=== PATIENT | female | born 1955 | race African-American/Black ===

== ENCOUNTER 2019-09-07 10:41 | Inpatient (IN) | payer MEDICARE, MEDICAID ==
[~2019-09-07] VITALS: Ht 162.6 cm; Wt 117.0 kg
[2019-09-07] MEDS ORDERED: IPRATROPIUM BROMIDE (0.02%) 0.5MG/2.5ML NEB HHN STA (11:07)
[2019-09-07] MEDS ORDERED: ALBUTEROL (0.083%) 2.5MG/3ML NEB HHN STA (11:07)
[2019-09-07] MEDS ORDERED: METHYLPREDNISOLONE SOD SUCC 125 MG/2 ML VIAL IV STA (11:07)
[2019-09-07 11:25] LABS: EOSINOPHILS % 0.6 % (0.0-5.0); HEMOGLOBIN. 11.1 g/dL (12.0-16.0); LYMPHOCYTES % 19.4 % (20.0-50.0); MEAN CORPUSCULAR HEMOGLOBIN 29.9 pg (28.0-32.0); MEAN CORPUSCULAR VOLUME 91.7 fL (81.0-99.0); MEAN PLATELET VOLUME 8.2 fl (7.4-10.4); MONOCYTES % 6.9 % (2.0-8.0); NEUTROPHILS % 72.1 % (40.0-76.0); PLATELET 313 x1000/uL (130-400); RED BLOOD CELL COUNT 3.71 mill/uL (4.2-5.4); RED CELL DISTRIBUTION WIDTH 14.3 % (11.6-14.6)
[2019-09-07 11:32] LABS: CHLORIDE 105 mEq/L (98-107)
[2019-09-07] MEDS ORDERED: HYDRALAZINE 20MG/ML VIAL IV ONE (12:00)
[2019-09-07] MEDS ORDERED: FUROSEMIDE 40MG/4ML VIAL IVP ONE (12:15)
[2019-09-07] MEDS ORDERED: GUAIFENESIN 200MG/10ML SUGAR FREE UDC PO PRN (14:15)
[2019-09-07] MEDS ORDERED: ACETAMINOPHEN 325MG TABLET PO PRN (14:15)
[2019-09-07] MEDS ORDERED: MAGNESIUM/ALUMINUM HYDROXIDE/SIMETHICONE 30ML UDC PO PRN (14:15)
[2019-09-07] MEDS ORDERED: ENOXAPARIN 40MG/0.4ML SYR SUBCUT SCH (14:15)
[2019-09-07] MEDS ORDERED: DIPHENHYDRAMINE 50MG/ML VIAL IV PRN (14:15)
[2019-09-07] MEDS ORDERED: DOCUSATE SODIUM 100MG CAPSULE PO PRN (14:15)
[2019-09-07] MEDS ORDERED: IPRATROPIUM/ALBUTEROL 0.5-3(2.5)MG/3ML NEB HHN PRN (14:15)
[2019-09-07] MEDS ORDERED: ONDANSETRON HCL 4MG/2ML INJ IV PRN (14:15)
[2019-09-07] MEDS ORDERED: HYDRALAZINE 20MG/ML VIAL IV PRN (15:15)
[2019-09-07 16:00] VITALS: BP_SYST 161; BP_SYST 202; BP_DIAS 76; BP_DIAS 77
[2019-09-07 16:07] LABS: PHOSPHORUS 3.8 mg/dL (2.5-4.9)
[2019-09-07] MEDS ORDERED: AZITHROMYCIN 500 MG in DEXT 5% WATER 250 ML IV SCH (17:00)
[2019-09-07 17:23] VITALS: BP 161/77
[2019-09-07] MEDS: FUROSEMIDE 40MG/4ML VIAL IV SCH (17:30)
[2019-09-07] MEDS: ENOXAPARIN 40MG/0.4ML SYR SUBCUT SCH (17:30)
[2019-09-07] MEDS: PREDNISONE 20MG TABLET PO SCH (17:31)
[2019-09-07] MEDS: MULTIVITAMINS,THER W-MINERALS TABLET PO SCH (17:31)
[2019-09-07] MEDS: THIAMINE HCL 100MG TABLET PO SCH (17:31)
[2019-09-07] MEDS: FOLIC ACID 1MG TABLET PO SCH (17:31)
[2019-09-07] MEDS: AMLODIPINE 5MG TABLET PO SCH ×2 (17:32→22:34)
[2019-09-07] MEDS: LOSARTAN POTASSIUM 50 MG TABLET PO SCH ×2 (17:32→22:33)
[2019-09-07] MEDS ORDERED: INFLUENZA VIRUS VACCINE(AFLURIA) 0.5ML SYR IM ONE (19:15)
[2019-09-07] MEDS ORDERED: PNEUMOCOCCAL 23-VAL P-SAC VAC 0.5 ML IM ONE (19:15)
[2019-09-07 20:00] VITALS: BP 171/61
[2019-09-07] MEDS: IPRATROPIUM/ALBUTEROL 0.5-3(2.5)MG/3ML NEB HHN SCH (20:50)
[2019-09-07] MEDS: GUAIFENESIN 600MG ER TABLET PO SCH (21:14)
[2019-09-07] MEDS: HYDRALAZINE HCL 50MG TABLET PO SCH (21:14)
[2019-09-07] MEDS: CLONIDINE 0.1MG TABLET PO PRN (21:17)
[2019-09-07 22:29] VITALS: BP 156/57
[2019-09-08] VITALS (7 sets, daily range): BP systolic 143–182; BP diastolic 48–74
[2019-09-08 00:31] LABS: CLARITY URINE CLOUDY (CLEAR); COLOR URINE YELLOW (YELLOW); KETONES URINE NEGATIVE (NEGATIVE); LEUKOCYTE ESTERASE URINE TRACE (NEGATIVE); NITRITE URINE NEGATIVE (NEGATIVE); OCCULT BLOOD URINE NEGATIVE (NEGATIVE); PROTEIN URINE NEGATIVE (NEGATIVE)
[2019-09-08 00:46] LABS: *AMPHETAMINES SCREEN URINE NEGATIVE (NEGATIVE); *BARBITURATES SCREEN URINE NEGATIVE (NEGATIVE)
[2019-09-08 00:47] LABS: *BENZODIAZEPINES SCREEN URINE NEGATIVE (NEGATIVE); *COCAINE SCREEN URINE NEGATIVE (NEGATIVE); CANNABINOID URINE SCREEN NEGATIVE (NEGATIVE); METHADONE URINE SCREEN NEGATIVE (NEGATIVE); OPIATES URINE SCREEN NEGATIVE (NEGATIVE); PHENCYCLIDINE URINE SCREEN NEGATIVE (NEGATIVE)
[2019-09-08] MEDS: IPRATROPIUM/ALBUTEROL 0.5-3(2.5)MG/3ML NEB HHN SCH ×4 (01:31→20:33)
[2019-09-08] MEDS: FUROSEMIDE 40MG/4ML VIAL IV SCH ×2 (06:33→16:30)
[2019-09-08] MEDS: ENOXAPARIN 40MG/0.4ML SYR SUBCUT SCH ×2 (06:34→16:31)
[2019-09-08] MEDS: HYDRALAZINE HCL 50MG TABLET PO SCH (06:34)
[2019-09-08 07:01] LABS: BASOPHILS % 0.3 % (0.0-2.0); HEMATOCRIT. 33.8 % (36.0-48.0); LYMPHOCYTES % 7.7 % (20.0-50.0); MEAN CORPUSCULAR HEMOGLOBIN 29.8 pg (28.0-32.0); MEAN CORPUSCULAR VOLUME 91.2 fL (81.0-99.0); MEAN PLATELET VOLUME 8.7 fl (7.4-10.4); MONOCYTES % 5.5 % (2.0-8.0); NEUTROPHILS % 86.5 % (40.0-76.0); PLATELET 302 x1000/uL (130-400)
[2019-09-08 07:49] LABS: CHLORIDE 99 mEq/L (98-107)
[2019-09-08] MEDS ORDERED: DEXTROSE 50% WATER 50ML SYRINGE IV PRN (08:00)
[2019-09-08 08:09] LABS: LDL CHOLESTEROL 121 mg/dL (5-100)
[2019-09-08 08:11] LABS: HDL CHOLESTEROL 51 mg/dL (40-59)
[2019-09-08] MEDS: BUDESONIDE 0.5MG/2ML NEB HHN SCH ×2 (09:10→20:33)
[2019-09-08] MEDS: THIAMINE HCL 100MG TABLET PO SCH (09:19)
[2019-09-08] MEDS: AMLODIPINE 5MG TABLET PO SCH ×2 (09:19→21:18)
[2019-09-08] MEDS: CLONIDINE 0.1MG TABLET PO PRN ×2 (09:20→22:56)
[2019-09-08] MEDS: GUAIFENESIN 600MG ER TABLET PO SCH (09:20)
[2019-09-08] MEDS: MULTIVITAMINS,THER W-MINERALS TABLET PO SCH (09:20)
[2019-09-08] MEDS: FOLIC ACID 1MG TABLET PO SCH (09:20)
[2019-09-08] MEDS: LOSARTAN POTASSIUM 50 MG TABLET PO SCH ×2 (09:20→21:18)
[2019-09-08] MEDS: PREDNISONE 20MG TABLET PO SCH (09:21)
[2019-09-08] MEDS: CLONIDINE 0.1MG TABLET PO SCH ×2 (10:15→16:30)
[2019-09-08] MEDS ORDERED: MAGNESIUM 2 G PREMIX 50 ML IV NR (11:00)
[2019-09-08] MEDS: POTASSIUM CHLORIDE 20MEQ TABLET SR PO SCH ×2 (11:32→16:30)
[2019-09-08] MEDS: BLOOD SUGAR DIAGNOSTIC STRIP TEST SCH ×3 (12:10→21:12)
[2019-09-08] MEDS ORDERED: BENZONATATE 100MG CAPSULE PO PRN (13:30)
[2019-09-08] MEDS: HYDRALAZINE HCL 100MG TABLET PO SCH ×2 (14:22→21:19)
[2019-09-08] MEDS: INSULIN LISPRO 100 UNITS/ML SUBCUT SCH ×3 (14:24→21:46)
[2019-09-08] MEDS: MONTELUKAST SODIUM 10MG TABLET PO SCH (16:29)
[2019-09-08] MEDS: FLUTICASONE PROPIONATE 50MCG/SPRAY BOTTLE BOTHNSTRLS SCH ×2 (17:33→21:16)
[2019-09-08] MEDS: AZITHROMYCIN 500 MG in DEXT 5% WATER 250 ML IV SCH (18:58)
[2019-09-08] MEDS: FAMOTIDINE 20MG/2ML VIAL IV SCH (21:17)
[2019-09-08] MEDS: LORATADINE 10MG TABLET PO SCH (21:18)
[2019-09-09] VITALS: BP 135/57
[2019-09-09] MEDS: IPRATROPIUM/ALBUTEROL 0.5-3(2.5)MG/3ML NEB HHN SCH ×4 (01:10→20:37)
[2019-09-09 04:00] VITALS: BP 139/60
[2019-09-09] MEDS: INSULIN LISPRO 100 UNITS/ML SUBCUT SCH ×4 (06:21→21:00)
[2019-09-09] MEDS: BLOOD SUGAR DIAGNOSTIC STRIP TEST SCH ×4 (06:21→21:00)
[2019-09-09] MEDS: HYDRALAZINE HCL 100MG TABLET PO SCH ×3 (06:25→22:00)
[2019-09-09] MEDS: ENOXAPARIN 40MG/0.4ML SYR SUBCUT SCH ×2 (06:26→17:49)
[2019-09-09] MEDS: FUROSEMIDE 40MG/4ML VIAL IV SCH ×3 (06:27→23:14)
[2019-09-09 08:00] VITALS: BP 160/77
[2019-09-09 08:22] LABS: BASOPHILS % 0.8 % (0.0-2.0); EOSINOPHILS % 0.3 % (0.0-5.0); HEMATOCRIT. 36.6 % (36.0-48.0); HEMOGLOBIN. 11.7 g/dL (12.0-16.0); MEAN CORPUSCULAR HEMOGLOBIN 29.4 pg (28.0-32.0); MEAN PLATELET VOLUME 8.6 fl (7.4-10.4); MONOCYTES % 6.1 % (2.0-8.0); NEUTROPHILS % 73.8 % (40.0-76.0); PLATELET 326 x1000/uL (130-400); RED BLOOD CELL COUNT 3.98 mill/uL (4.2-5.4); RED CELL DISTRIBUTION WIDTH 14.4 % (11.6-14.6)
[2019-09-09] MEDS: BUDESONIDE 0.5MG/2ML NEB HHN SCH ×2 (08:32→20:37)
[2019-09-09 08:41] LABS: CHLORIDE 100 mEq/L (98-107)
[2019-09-09] MEDS: FLUTICASONE PROPIONATE 50MCG/SPRAY BOTTLE BOTHNSTRLS SCH ×2 (08:57→21:00)
[2019-09-09] MEDS: FAMOTIDINE 20MG/2ML VIAL IV SCH ×2 (08:58→23:02)
[2019-09-09] MEDS: PREDNISONE 20MG TABLET PO SCH (08:58)
[2019-09-09] MEDS: LOSARTAN POTASSIUM 50 MG TABLET PO SCH ×2 (08:59→21:00)
[2019-09-09] MEDS: AMLODIPINE 5MG TABLET PO SCH ×2 (08:59→23:00)
[2019-09-09] MEDS: FOLIC ACID 1MG TABLET PO SCH (08:59)
[2019-09-09] MEDS: CLONIDINE 0.1MG TABLET PO SCH ×2 (08:59→16:11)
[2019-09-09] MEDS: POTASSIUM CHLORIDE 20MEQ TABLET SR PO SCH ×2 (09:00→16:11)
[2019-09-09] MEDS: THIAMINE HCL 100MG TABLET PO SCH (09:00)
[2019-09-09] MEDS: MULTIVITAMINS,THER W-MINERALS TABLET PO SCH (09:01)
[2019-09-09 12:00] VITALS: BP 150/75
[2019-09-09 16:00] VITALS: BP 153/66
[2019-09-09] MEDS: MONTELUKAST SODIUM 10MG TABLET PO SCH (16:11)
[2019-09-09] MEDS: AZITHROMYCIN 500 MG in DEXT 5% WATER 250 ML IV SCH (17:37)
[2019-09-09 20:00] VITALS: BP 127/55
[2019-09-09] MEDS: LORATADINE 10MG TABLET PO SCH (22:59)
[2019-09-10] VITALS: BP 130/78
[2019-09-10] MEDS: IPRATROPIUM/ALBUTEROL 0.5-3(2.5)MG/3ML NEB HHN SCH ×2 (02:30→09:28)
[2019-09-10 04:00] VITALS: BP 156/86
[2019-09-10] MEDS: BLOOD SUGAR DIAGNOSTIC STRIP TEST SCH ×2 (06:00→11:30)
[2019-09-10] MEDS: INSULIN LISPRO 100 UNITS/ML SUBCUT SCH ×2 (06:02→11:30)
[2019-09-10] MEDS: ENOXAPARIN 40MG/0.4ML SYR SUBCUT SCH (06:03)
[2019-09-10] MEDS: FUROSEMIDE 40MG/4ML VIAL IV SCH (06:03)
[2019-09-10] MEDS: HYDRALAZINE HCL 100MG TABLET PO SCH ×2 (06:10→13:13)
[2019-09-10 07:19] LABS: CHLORIDE 98 mEq/L (98-107)
[2019-09-10 07:20] LABS: BASOPHILS % 0.4 % (0.0-2.0); EOSINOPHILS % 0.2 % (0.0-5.0); HEMATOCRIT. 35.9 % (36.0-48.0); HEMOGLOBIN. 11.6 g/dL (12.0-16.0); LYMPHOCYTES % 19.4 % (20.0-50.0); MEAN CORPUSCULAR HEMOGLOBIN 29.5 pg (28.0-32.0); MEAN CORPUSCULAR VOLUME 91.1 fL (81.0-99.0); MEAN PLATELET VOLUME 8.3 fl (7.4-10.4); MONOCYTES % 8.7 % (2.0-8.0); NEUTROPHILS % 71.3 % (40.0-76.0); PLATELET 366 x1000/uL (130-400); RED BLOOD CELL COUNT 3.94 mill/uL (4.2-5.4); RED CELL DISTRIBUTION WIDTH 14.4 % (11.6-14.6)
[2019-09-10 08:00] VITALS: BP 156/84
[2019-09-10] MEDS: FLUTICASONE PROPIONATE 50MCG/SPRAY BOTTLE BOTHNSTRLS SCH (08:31)
[2019-09-10] MEDS: AMLODIPINE 5MG TABLET PO SCH (08:32)
[2019-09-10] MEDS: THIAMINE HCL 100MG TABLET PO SCH (08:32)
[2019-09-10] MEDS: CLONIDINE 0.1MG TABLET PO SCH (08:33)
[2019-09-10] MEDS: POTASSIUM CHLORIDE 20MEQ TABLET SR PO SCH (08:33)
[2019-09-10] MEDS: LOSARTAN POTASSIUM 50 MG TABLET PO SCH (08:33)
[2019-09-10] MEDS: MULTIVITAMINS,THER W-MINERALS TABLET PO SCH (08:33)
[2019-09-10] MEDS: FAMOTIDINE 20MG/2ML VIAL IV SCH (08:34)
[2019-09-10] MEDS: FOLIC ACID 1MG TABLET PO SCH (08:34)
[2019-09-10] MEDS: PREDNISONE 20MG TABLET PO SCH (08:34)
[2019-09-10] MEDS ORDERED: FUROSEMIDE 40MG TABLET PO SCH (09:00)
[2019-09-10] MEDS: BUDESONIDE 0.5MG/2ML NEB HHN SCH (09:28)
[2019-09-10 12:00] VITALS: BP 175/93
[2019-09-10] MEDS: CLONIDINE 0.1MG TABLET PO PRN (12:06)
[2019-09-10] MEDS ORDERED: FUROSEMIDE 40MG/4ML VIAL IVP NR (13:00)
[2019-09-10] MEDS ORDERED: MONT10TA21 PO (13:16)
[2019-09-10] MEDS ORDERED: THIA100T72 PO (13:16)
[2019-09-10] MEDS ORDERED: AMLO5TAB88 PO (13:16)
[2019-09-10] MEDS ORDERED: HYDR100T26 PO (13:16)
[2019-09-10] MEDS ORDERED: P20 PO (13:16)
[2019-09-10] MEDS ORDERED: BENZ100C86 PO (13:16)
[2019-09-10] MEDS ORDERED: AZIT500T5 MT (13:16)
[2019-09-10] MEDS ORDERED: CLAR10 PO (13:16)
[2019-09-10] MEDS ORDERED: FURO40TA5 PO (13:16)
[2019-09-10] MEDS ORDERED: POTA20TA82 PO (13:16)
[2019-09-10] MEDS ORDERED: ALBU18HF2 IH (13:16)
[2019-09-10] MEDS ORDERED: CLON0.1T14 PO (13:16)
[2019-09-10] MEDS ORDERED: LOSA50TA3 PO (13:16)
[2019-09-10] MEDS ORDERED: FOLI-43 PO (13:16)
[2019-09-10] MEDS ORDERED: FLUT1AER INH (13:17)
[2019-09-10 13:34] VITALS: BP 158/80
== END 2019-09-10 15:22 | disposition home or self-care (01) | DRG 291 ==
LOC: ER 10:41 → 8WST 14:01 → ENRESERV 14:17
PROVIDERS: ADMIT Internal Medicine; ATTEND Internal Medicine
DX: I11.0 Hypertensive heart disease with heart failure (principal); J96.00 Acute respiratory failure, unspecified whether with hypoxia or hypercapnia; J44.1 Chronic obstructive pulmonary disease with (acute) exacerbation; J45.901 Unspecified asthma with (acute) exacerbation; J44.0 Chronic obstructive pulmonary disease with (acute) lower respiratory infection; I16.1 Hypertensive emergency; I50.43 Acute on chronic combined systolic (congestive) and diastolic (congestive) heart failure; F10.10 Alcohol abuse, uncomplicated; E66.01 Morbid (severe) obesity due to excess calories; D64.9 Anemia, unspecified; E83.42 Hypomagnesemia; E87.6 Hypokalemia; I44.7 Left bundle-branch block, unspecified; J20.9 Acute bronchitis, unspecified; M06.9 Rheumatoid arthritis, unspecified; R73.9 Hyperglycemia, unspecified; I42.9 Cardiomyopathy, unspecified; Z91.14 Patient's other noncompliance with medication regimen; Z91.19 Patient's noncompliance with other medical treatment and regimen; Z59.0 Homelessness; Z79.899 Other long term (current) drug therapy; Z90.710 Acquired absence of both cervix and uterus
CPT/HCPCS: 36415; 71045; 80048; 80061; 80305; 81003; 82962; 83036; 83735; 83880; 84100; 84443; 84484; 85379; 90686; 90732; 93005; 93306; 93970; 94640; 94644; 96374; 97162; 99285; J0360; J0456; J1650; J1815; J1940; J2930; J3475; J3490; J7060; J7512; J7611; J7620; J7626

== ENCOUNTER 2019-09-15 07:55 | Emergency (ER) | payer MEDICARE, MEDICAID ==
[~2019-09-15] VITALS: Ht 170.2 cm; Wt 115.0 kg
[~2019-09-15 07:55] MED LIST: ALBU18HF2 IH; AMLO5TAB88 PO; AZIT500T5 MT; BENZ100C86 PO; CLAR10 PO; CLON0.1T14 PO; FLUT1AER INH; FOLI-43 PO; FURO40TA5 PO; HYDR100T26 PO; LOSA50TA3 PO; MONT10TA21 PO; P20 PO; POTA20TA82 PO; THIA100T72 PO
[2019-09-15] MEDS ORDERED: SODIUM CHLORIDE 0.9% 1,000 ML IV ONE (08:09)
[2019-09-15] MEDS ORDERED: METHYLPREDNISOLONE SOD SUCC 125 MG/2 ML VIAL IV STA (08:40)
[2019-09-15] MEDS ORDERED: IPRATROPIUM BROMIDE (0.02%) 0.5MG/2.5ML NEB HHN STA (08:40)
[2019-09-15] MEDS ORDERED: ALBUTEROL (0.083%) 2.5MG/3ML NEB HHN STA (08:40)
[2019-09-15] MEDS ORDERED: MAGNESIUM 2 G PREMIX 50 ML IV ONE (08:45)
[2019-09-15 09:15] LABS: BASOPHILS % 0.7 % (0.0-2.0); EOSINOPHILS % 0.7 % (0.0-5.0); HEMATOCRIT. 39.1 % (36.0-48.0); HEMOGLOBIN. 12.8 g/dL (12.0-16.0); LYMPHOCYTES % 16.4 % (20.0-50.0); MEAN CORPUSCULAR HEMOGLOBIN 29.6 pg (28.0-32.0); MEAN CORPUSCULAR VOLUME 90.2 fL (81.0-99.0); MEAN PLATELET VOLUME 7.8 fl (7.4-10.4); MONOCYTES % 7.3 % (2.0-8.0); NEUTROPHILS % 74.9 % (40.0-76.0); PLATELET 383 x1000/uL (130-400); RED BLOOD CELL COUNT 4.34 mill/uL (4.2-5.4); RED CELL DISTRIBUTION WIDTH 13.8 % (11.6-14.6)
[2019-09-15 09:21] LABS: CHLORIDE 106 mEq/L (98-107)
[2019-09-15 11:42] VITALS: BP 178/61
== END 2019-09-15 11:49 | disposition home or self-care (01) ==
LOC: ER 09:25
DX: J45.901 Unspecified asthma with (acute) exacerbation (principal); I11.0 Hypertensive heart disease with heart failure; I50.9 Heart failure, unspecified; Z79.899 Other long term (current) drug therapy
CPT/HCPCS: 36415; 71045; 80053; 83880; 84484; 85025; 93005; 94644; 96365; 96375; 99285; J2930; J3475; J7030; J7611